=== PATIENT | male | born 1955 | race Caucasian/White ===

== ENCOUNTER 2017-08-13 05:57 | Day surgery (SDC) | payer BC ==
[2017-08-10 15:20] VITALS: BMI 27.2
[2017-08-13 07:12] VITALS: TEMP 98
--- NOTE | 2017-08-13 07:17 | HP ---
Admitting History and Physical - Admission History of Present Illness: Patient is a 61 y/o male with a past medical history of bipolar disorder and CKD. patient presents for ect. He was recently admitted to [facility] for depressive symptoms for 19 days and was discharged on 08/08/17. He received [address] [facility]. patient denies any adverse reaction after receiving ects. He denies any suicidal or homicidal ideation, visual or auditory hallucinations. Patient declines any recent illnesses. 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 History of Recent Travel: No Home Medications - Allergies Allergies/Adverse Reactions: Allergies Allergy/AdvReac Type Severity Reaction Status Date / Time No Known Allergies Allergy Verified 08/10/17 15:06 - Home Medications Home Medications: Ambulatory Orders Mirtazapine [Remeron -] 15 mg PO HS 08/10/17 Venlafaxine HCl ER [Effexor Xr -] 150 mg PO DAILY 08/10/17 Family Disease History - Family Disease History Family History: Denies Review of Systems - Review of Systems Constitutional: reports: No Symptoms Eyes: reports: No Symptoms HENT: reports: No Symptoms Neck: reports: No Symptoms Cardiovascular: reports: No Symptoms Respiratory: reports: No Symptoms Gastrointestinal: reports: No Symptoms Genitourinary: reports: No Symptoms Musculoskeletal: reports: No Symptoms Integumentary: reports: No Symptoms Neurological: reports: No Symptoms Endocrine: reports: No Symptoms Hematology/Lymphatic: reports: No Symptoms Psychiatric: reports: No Symptoms Physical Examination Constitutional: Yes: Well Nourished, No Distress, Calm Eyes: Yes: WNL, Conjunctiva Clear, EOM Intact HENT: Yes: WNL, Atraumatic, Normocephalic Neck: Yes: WNL, Supple, Trachea Midline Cardiovascular: Yes: WNL, Regular Rate and Rhythm, S1, S2 Respiratory: Yes: WNL, Regular, CTA Bilaterally Gastrointestinal: Yes: WNL, Normal Bowel Sounds, Soft ...Rectal Exam: Yes: Deferred Renal/: Yes: WNL Musculoskeletal: Yes: WNL Extremities: Yes: WNL Edema: No Integumentary: Yes: WNL, Tattoos Neurological: Yes: WNL, Alert, Oriented ...Motor Strength: WNL Psychiatric: Yes: WNL, Alert, Oriented Labs: reviewed 07/22 Imaging - Results EKG: Image Reviewed, Other (nsr) Assessment/Plan Patient is a 61 y/o male that presents for ect, labs and ekg reviewed patient is a medically optimized for procedure informed consent, risks/benefits to be obtained by Dr Ponce
[2017-08-13] MEDS ORDERED: KETAMINE HCL 500 MG/10 ML VIAL ONE (07:31)
[2017-08-13] MEDS ORDERED: oxyCODONE HCL 5 MG TABLET PO PRN ×2 (07:33)
[2017-08-13] MEDS ORDERED: ONDANSETRON 4 MG/2 ML VIAL IVPUSH PRN (07:33)
[2017-08-13 09:17] VITALS: BP 122/76; PULSE 71
== END 2017-08-13 09:15 | disposition home or self-care (01) ==
LOC: FECT 05:57 → FASU 05:57
PROVIDERS: ATTEND Psychiatry & Neurology Psychiatry
PROC: GZB4ZZZ Other Electroconvulsive Therapy (ICD-10-PCS; principal; 2017-08-13 07:45)
DX: F33.2 Major depressive disorder, recurrent severe without psychotic features (principal); N18.9 Chronic kidney disease, unspecified; Z87.891 Personal history of nicotine dependence
CPT/HCPCS: 90870; 94760

== ENCOUNTER 2017-08-16 05:39 | Day surgery (SDC) | payer BC ==
[2017-08-14 12:03] VITALS: BMI 27.2
[2017-08-16 06:36] VITALS: TEMP 98.2
[2017-08-16] MEDS ORDERED: KETAMINE HCL 500 MG/10 ML VIAL ONE (07:02)
[2017-08-16 09:21] VITALS: BP 129/79; PULSE 70
== END 2017-08-16 08:45 | disposition home or self-care (01) ==
LOC: FECT 05:39
PROVIDERS: ATTEND Psychiatry & Neurology Psychiatry
PROC: GZB4ZZZ Other Electroconvulsive Therapy (ICD-10-PCS; principal; 2017-08-16 07:00)
DX: F33.2 Major depressive disorder, recurrent severe without psychotic features (principal)

== ENCOUNTER 2017-08-20 05:43 | Day surgery (SDC) | payer BC ==
[2017-08-20 06:14] VITALS: BMI 26.0
[2017-08-20 08:05] VITALS: TEMP 97.5
[2017-08-20 10:47] VITALS: BP 148/76; PULSE 62
== END 2017-08-20 08:30 | disposition home or self-care (01) ==
LOC: FECT 05:43
PROVIDERS: ATTEND Psychiatry & Neurology Psychiatry
PROC: GZB4ZZZ Other Electroconvulsive Therapy (ICD-10-PCS; principal; 2017-08-20)
DX: F33.2 Major depressive disorder, recurrent severe without psychotic features (principal)
CPT/HCPCS: 90870; 94760

== ENCOUNTER 2017-08-22 05:41 | Day surgery (SDC) | payer BC ==
[2017-08-14 14:01] VITALS: BMI 27.2
[2017-08-22] MEDS ORDERED: KETAMINE HCL 500 MG/10 ML VIAL ONE (06:48)
[2017-08-22 08:08] VITALS: TEMP 98.2
[2017-08-22 08:59] VITALS: BP 142/78; PULSE 68
== END 2017-08-22 08:40 | disposition home or self-care (01) ==
LOC: FECT 05:41
PROVIDERS: ATTEND Psychiatry & Neurology Psychiatry
PROC: GZB4ZZZ Other Electroconvulsive Therapy (ICD-10-PCS; principal; 2017-08-22 07:00)
DX: F33.2 Major depressive disorder, recurrent severe without psychotic features (principal)
CPT/HCPCS: 90870; 94760

== ENCOUNTER 2017-08-24 05:42 | Day surgery (SDC) | payer BC ==
[2017-08-21 08:00] VITALS: BMI 26.0
[2017-08-24] MEDS ORDERED: KETAMINE HCL 500 MG/10 ML VIAL ONE (07:12)
[2017-08-24 09:04] VITALS: TEMP 97.6
[2017-08-24 09:11] VITALS: BP 139/77; PULSE 70
== END 2017-08-24 09:10 | disposition home or self-care (01) ==
LOC: FECT 05:42
PROVIDERS: ATTEND Psychiatry & Neurology Psychiatry
PROC: GZB4ZZZ Other Electroconvulsive Therapy (ICD-10-PCS; principal; 2017-08-24 08:15)
DX: F33.2 Major depressive disorder, recurrent severe without psychotic features (principal)
CPT/HCPCS: 90870; 94760

== ENCOUNTER 2017-08-27 05:41 | Day surgery (SDC) | payer BC ==
[2017-08-21 11:48] VITALS: BMI 26.0
[2017-08-27 07:48] VITALS: PULSE 70; TEMP 97.5
[2017-08-27 08:22] VITALS: BP 137/82
== END 2017-08-27 08:23 | disposition home or self-care (01) ==
LOC: FECT 05:41
PROVIDERS: ATTEND Psychiatry & Neurology Psychiatry
PROC: GZB4ZZZ Other Electroconvulsive Therapy (ICD-10-PCS; principal; 2017-08-27)
DX: F33.2 Major depressive disorder, recurrent severe without psychotic features (principal)
CPT/HCPCS: 90870; 94760

== ENCOUNTER 2017-08-29 05:45 | Day surgery (SDC) | payer BC ==
[2017-08-21 11:51] VITALS: BMI 26.0
[2017-08-29] MEDS ORDERED: KETAMINE HCL 500 MG/10 ML VIAL ONE (07:04)
[2017-08-29 07:57] VITALS: TEMP 98
[2017-08-29 08:49] VITALS: BP 136/70
[2017-08-29 08:53] VITALS: PULSE 73
== END 2017-08-29 08:30 | disposition home or self-care (01) ==
LOC: FECT 05:45
PROVIDERS: ATTEND Psychiatry & Neurology Psychiatry
PROC: GZB4ZZZ Other Electroconvulsive Therapy (ICD-10-PCS; principal; 2017-08-29 07:30)
DX: F33.2 Major depressive disorder, recurrent severe without psychotic features (principal)
CPT/HCPCS: 90870; 94760

== ENCOUNTER 2017-09-03 05:39 | Day surgery (SDC) | payer BC ==
[2017-08-24 15:54] VITALS: BMI 27.2
[2017-09-03] MEDS ORDERED: KETAMINE HCL 500 MG/10 ML VIAL ONE (07:49)
[2017-09-03 08:51] VITALS: TEMP 98
[2017-09-03 09:02] VITALS: BP 147/85; PULSE 59
== END 2017-09-03 09:05 | disposition home or self-care (01) ==
LOC: FECT 05:39
PROVIDERS: ATTEND Psychiatry & Neurology Psychiatry
PROC: GZB4ZZZ Other Electroconvulsive Therapy (ICD-10-PCS; principal; 2017-09-03 07:30)
DX: F33.2 Major depressive disorder, recurrent severe without psychotic features (principal)
CPT/HCPCS: 90870; 94760